=== PATIENT | female | born 1940 | race Caucasian/White ===

== ENCOUNTER 2024-06-08 09:02 | Outpatient (CLI) | payer MEDICARE, BC | END 2024-06-08 23:59 | disposition critical access hospital (66) | LOC: EMS 09:02 | DX: R10.84 Generalized abdominal pain (principal); R11.2 Nausea with vomiting, unspecified; R19.7 Diarrhea, unspecified; R53.1 Weakness | CPT/HCPCS: A0425; A0429 ==

== ENCOUNTER 2024-06-08 09:24 | Emergency (ER) | payer MEDICARE, BC ==
--- NOTE | 2024-06-08 09:52 | ED Physician Documentation ---
PD HPI NVD - Stated complaint Stated Complaint: GENERAL WEAKNESS/ABD PX - Chief complaint Chief Complaint: Abd Pain - History obtained from History obtained from: Patient - History of Present Illness Timing - onset: How many weeks ago (2) Timing - duration: Weeks (2) Timing - details: Gradual onset, Still present, Waxing and waning PD PAST MEDICAL HISTORY - Past Medical History Cardiovascular: None Respiratory: None Neuro: None Endocrine/Autoimmune: None - Present Medications Home Medications: Ambulatory Orders Medication Instructions Recorded Confirmed Alprazolam [Alprazolam Xr] 0.5 mg PO BID PRN 06/08/24 06/08/24 Atorvastatin [Lipitor] 20 mg PO QPM 06/08/24 06/08/24 Calcium Carb (Oyster Shell) 1,000 mg PO DAILY 06/08/24 06/08/24 [Oysco-500] Denosumab [Prolia] 60 mg SUBQ ONCE 06/08/24 06/08/24 Famotidine [Acid Junior Software Engineer] 20 mg PO BID 06/08/24 06/08/24 Fluticasone [Flonase] 1 sprays CHERI DAILY 06/08/24 06/08/24 Loteprednol Etabonate 5 ml OP TID 06/08/24 06/08/24 Melatonin 10 mg PO QPM 06/08/24 06/08/24 Multivit-Min/Folic Acid/Biotin 1 each PO DAILY 06/08/24 06/08/24 [Women Multivit W-Biotin Gummy] Omeprazole 20 mg PO BID #30 tab 06/08/24 Ondansetron Odt [Zofran] 4 mg TL Q6H PRN #20 tablet 06/08/24 Ondansetron [Ondansetron Odt] 8 mg PO Q12H PRN 06/08/24 06/08/24 Promethazine Supp [Phenergan Supp] 25 mg CO Q6H PRN #5 supp 06/08/24 Promethazine [Phenergan] 25 mg PO Q6H PRN #10 tab 06/08/24 Sucralfate [Carafate] 1 gm PO ACHS 5 Days #200 ml 06/08/24 - Allergies Allergies/Adverse Reactions: Allergies Allergy/AdvReac Type Severity Reaction Status Date / Time No Known Drug Allergies Allergy Verified 06/08/24 09:39 PD ED PE NORMAL - Vitals Vital signs reviewed: Yes - General General: Alert and oriented X 3, No acute distress, Well developed/nourished - HEENT HEENT: Pharynx benign - Neck Neck: Supple, no meningeal sign, No adenopathy - Cardiac Cardiac: RRR, No murmur - Respiratory Respiratory: Clear bilaterally - Abdomen Abdomen: Normal bowel sounds, Soft, Non distended, No organomegaly, Other (mild tender epigastric withut guarding. Not tender lower abd. ) - Derm Derm: Normal color, Warm and dry - Neuro Neuro: Alert and oriented X 3, No motor deficit, Normal speech Results - Vitals Vitals: Oxygen O2 Source Room air - Labs Labs: Laboratory Tests 06/08/24 06/08/24 06/08/24 10:04 10:11 10:42 WBC 7.4 RBC 3.85 L Hgb 12.8 Hct 38.2 MCV 99.2 H MCH 33.2 H MCHC 33.5 RDW 14.6 Plt Count 221 MPV 9.9 Neut # (Auto) 4.9 Lymph # (Auto) 1.3 L Ponce # (Auto) 0.8 Eos # (Auto) 0.2 Baso # (Auto) 0.0 Absolute Nucleated RBC 0.00 Nucleated RBC % 0.0 Sodium Potassium Chloride Carbon Dioxide Anion Gap BUN Creatinine Estimated GFR (MDRD) Glucose Calcium Phosphorus Magnesium Total Bilirubin AST ALT Alkaline Phosphatase Total Protein Albumin Globulin Albumin/Globulin Ratio Lipase Urine Color Urine Clarity Urine pH Ur Specific [place] Urine Protein Urine Glucose (UA) Urine Ketones Urine Occult Blood Urine Nitrite Urine Bilirubin Urine Urobilinogen Ur Leukocyte Esterase Ur Microscopic Review Urine Culture Comments Nasal Adenovirus (PCR) NOT DETECTED Nasal B. parapertussis DNA (PCR) NOT DETECTED Nasal Coronavir 229E PCR NOT DETECTED Nasal Coronavir HKU1 PCR NOT DETECTED Nasal Coronavir NL63 PCR NOT DETECTED Nasal Coronavir OC43 PCR NOT DETECTED Nasal Enterovir/Rhinovir PCR NOT DETECTED Nasal Influenza B PCR NOT DETECTED Nasal Influenza A PCR NOT DETECTED Nasal Parainfluen 1 PCR NOT DETECTED Nasal Parainfluen 2 PCR NOT DETECTED Nasal Parainfluen 3 PCR NOT DETECTED Nasal Parainfluen 4 PCR NOT DETECTED Nasal RSV (PCR) NOT DETECTED Nasal B.pertussis DNA PCR NOT DETECTED Nasal C.pneumoniae (PCR) NOT DETECTED Cheri Human Metapneumo PCR NOT DETECTED Nasal M.pneumoniae (PCR) NOT DETECTED Nasal SARS-CoV-2 (PCR) NOT DETECTED Stl C. diff Tox B Gene NEGATIVE 06/08/24 06/08/24 10:42 13:23 WBC RBC Hgb Hct MCV MCH MCHC RDW Plt Count MPV Neut # (Auto) Lymph # (Auto) Ponce # (Auto) Eos # (Auto) Baso # (Auto) Absolute Nucleated RBC Nucleated RBC % Sodium 133 L Potassium 4.0 Chloride 99 L Carbon Dioxide 27 Anion Gap 7.0 BUN 11 Creatinine 0.7 Estimated GFR (MDRD) 80 L Glucose 100 Calcium 9.9 Phosphorus 2.2 L Magnesium 2.0 Total Bilirubin 0.6 AST 19 ALT 17 Alkaline Phosphatase 70 Total Protein 7.0 Albumin 4.7 Globulin 2.3 Albumin/Globulin Ratio 2.0 Lipase 12 Urine Color YELLOW Urine Clarity CLEAR Urine pH 8.0 H Ur Specific [place] 1.010 Urine Protein NEGATIVE Urine Glucose (UA) NEGATIVE Urine Ketones NEGATIVE Urine Occult Blood NEGATIVE Urine Nitrite NEGATIVE Urine Bilirubin NEGATIVE Urine Urobilinogen 0.2 (NORMAL) Ur Leukocyte Esterase NEGATIVE Ur Microscopic Review NOT INDICATED Urine Culture Comments NOT INDICATED Nasal Adenovirus (PCR) Nasal B. parapertussis DNA (PCR) Nasal Coronavir 229E PCR Nasal Coronavir HKU1 PCR Nasal Coronavir NL63 PCR Nasal Coronavir OC43 PCR Nasal Enterovir/Rhinovir PCR Nasal Influenza B PCR Nasal Influenza A PCR Nasal Parainfluen 1 PCR Nasal Parainfluen 2 PCR Nasal Parainfluen 3 PCR Nasal Parainfluen 4 PCR Nasal RSV (PCR) Nasal B.pertussis DNA PCR Nasal C.pneumoniae (PCR) Cheri Human Metapneumo PCR Nasal M.pneumoniae (PCR) Nasal SARS-CoV-2 (PCR) Stl C. diff Tox B Gene - Rads (name of study) abd/pelvic CT Relevant Findings:: Prelim report reviewed (normal CT abd withut acute findings. ), EMP independent interpretation of test PD Medical Decision Making - ED course Complexity details: reviewed results (viral panel negative, C diff negative. CT abd without acute abnormality. WBC normal. Chemistry showing normal kidney function and lytes. Lfts and lipase also good. ), re-evaluated patient (feeling improved with IV fluids and meds for pain and nausea. ), considered differential (initially sounding like viral GE with NVD. Has had ongoing upper abd pain with nausea, and now recently with dairrhea again too. ), d/w patient Departure - Departure Disposition: 01 Home, Self Care Clinical Impression: Abdominal pain, Nausea vomiting and diarrhea Condition: Stable Record reviewed to determine appropriate education?: Yes Prescriptions: Sucralfate [Carafate] 1 gm PO ACHS 5 Days #200 ml Omeprazole 20 mg PO BID #30 tab Promethazine [Phenergan] 25 mg PO Q6H PRN #10 tab PRN Reason: Nausea / Vomiting Promethazine Supp [Phenergan Supp] 25 mg CO Q6H PRN #5 supp PRN Reason: Nausea / Vomiting Ondansetron Odt [Zofran] 4 mg TL Q6H PRN #20 tablet PRN Reason: Nausea / Vomiting Comments: It sounds likely you had some element of a viral "stomach flu" initially and perhaps just left a ongoing irritation of the stomach and intestines perpetuating your symptoms now for the couple of weeks. Your blood test did not show any signs of notable abnormality, in particular normal liver and pancreas enzymes, electrolytes, blood sugar and kidney function and blood count. Your CT scan did not show any acute abnormality to account for the abdominal pain. They did see the evidence for your history of multiple myeloma and bony areas. We can treat for the irritation of the stomach and intestines with increasing your stomach acid medication regimen, omeprazole increased from once daily to twice daily and add a liquid medicine called sacral fate 4 times daily. For nausea, if try ondansetron/Zofran and if not effective enough, add promethazine either tablet or suppository. If you have further diarrhea, try [id number] Imodium every 4-6 hours if needed. Small frequent fluids and bland food initially. I sent your prescriptions to [facility] pharmacy in [place]. Summary directions: 1. Increase omeprazole to twice daily 2. Sacral fate 4 times daily for the next 5 days 3. Ondansetron if needed for nausea 4. Promethazine if needed for nausea despite the above 5. Imodium if needed for diarrhea 6. Frequent fluids and bland food Forms: PCP List Discharge Date/Time: 06/08/24 16:31
[2024-06-08 10:49] LABS: BASOPHILS % (AUTO) 0.5 %; EOSINOPHILS # (AUTO) 0.2 10^3/uL (0.0-0.7); EOSINOPHILS % (AUTO) 3.3 %; HCT - HEMATOCRIT 38.2 % (37.0-47.0); HGB - HEMOGLOBIN 12.8 g/dL (12.0-16.0); LYMPHOCYTES # (AUTO) 1.3 10^3/uL (1.5-3.5); LYMPHOCYTES % (AUTO) 17.4 %; MEAN CORPUSCULAR HEMOGLOBIN 33.2 pg (27.0-31.0); MEAN CORPUSCULAR HGB CONC 33.5 g/dL (32.0-36.0); MEAN CORPUSCULAR VOLUME 99.2 fL (81.0-99.0); MEAN PLATELET VOLUME 9.9 fL (7.9-10.8); MONOCYTES # (AUTO) 0.8 10^3/uL (0.0-1.0); MONOCYTES % (AUTO) 10.6 %; NEUTROPHILS # (AUTO) 4.9 10^3/uL (1.5-6.6); NEUTROPHILS % (AUTO) 66.6 %; PLT - PLATELET COUNT 221 10^3/uL (130-450); RED BLOOD COUNT 3.85 10^6/uL (4.20-5.40); RED CELL DISTRIBUTION WIDTH 14.6 % (12.0-15.0); WHITE BLOOD COUNT 7.4 x10^3/uL (4.8-10.8)
[2024-06-08] MEDS: HYDROmorphone 0.5 MG/0.5 ML SYRINGE IVP STA (10:50)
[2024-06-08] MEDS: SODIUM CHLORIDE 0.9% 1,000 ML IV STA ×2 (10:50→14:04)
[2024-06-08] MEDS: ONDANSETRON 4 MG/2 ML VIAL IVP STA (10:51)
[2024-06-08] MEDS: FAMOTIDINE 20 MG/2 ML VIAL IVP STA (10:51)
[2024-06-08 11:02] LABS: ALBUMIN 4.7 g/dL (3.2-5.5); BILIRUBIN,TOTAL 0.6 mg/dL (0.2-1.0); CALCIUM 9.9 mg/dL (8.5-10.3); CREATININE 0.7 mg/dL (0.6-1.3); PHOSPHORUS 2.2 mg/dL (2.5-5.0)
--- NOTE | 2024-06-08 11:04 | XRAY Report ---
PROCEDURE: Chest 1V INDICATIONS: cough/dyspnea TECHNIQUE: One view of the chest was acquired. COMPARISON: None. FINDINGS: Surgical changes and devices: None. Lungs and pleura: No pleural effusions or pneumothorax. Lungs are clear. Mediastinum: Mediastinal contours appear normal. Heart size is normal. Bones and chest wall: No suspicious bony lesions. Multiple old bilateral rib fractures. Overlying so ft tissues appear unremarkable. IMPRESSION: No acute cardiopulmonary process. Reviewed by: Ramakrishna Bailey MD on 06/08/2024 11:03 AM PDT Approved by: Ramakrishna Bailey MD on 06/08/2024 11:03 AM PDT Station ID: [id number]
[2024-06-08 11:28] LABS: CORONAVIRUS 229E-RESP PCR NOT DETECTED; CORONAVIRUS HKU1-RESP PCR NOT DETECTED; CORONAVIRUS NL63-RESP PCR NOT DETECTED
[2024-06-08 11:29] LABS: B. PARAPERTUSSIS- RESP PCR PAN NOT DETECTED; B. PERTUSSIS- RESP PCR PANEL NOT DETECTED; C. PNEUMONIAE- RESP PCR PANEL NOT DETECTED; CORONAVIRUS OC43-RESP PCR NOT DETECTED; HUMAN METAPNEUMOVIRUS NOT DETECTED; INFLUENZA A- RESP PCR PANEL NOT DETECTED; INFLUENZA B - RESP PCR PANEL NOT DETECTED; M. PNEUMONIAE- RESP PCR PANEL NOT DETECTED; PARAINFLUENZA VIRUS 1 NOT DETECTED; PARAINFLUENZA VIRUS 2 NOT DETECTED; PARAINFLUENZA VIRUS 3 NOT DETECTED; PARAINFLUENZA VIRUS 4 NOT DETECTED; RHINOVIRUS/ENTEROVIRUS NOT DETECTED; RSV- RESP PCR PANEL NOT DETECTED; SARS-CoV-2 -RESP PCR PANEL NOT DETECTED
[2024-06-08] MEDS ORDERED: iohexoL-300 100 ML VIAL ONE (12:06)
[2024-06-08 13:34] LABS: BILIRUBIN,URINE NEGATIVE (NEGATIVE); GLUCOSE, URINE (UA) NEGATIVE (NEGATIVE); KETONES,URINE (UA) NEGATIVE (NEGATIVE); LEUKOCYTE ESTERASE, URINE NEGATIVE (NEGATIVE); NITRITE,URINE NEGATIVE (NEGATIVE); OCCULT BLOOD,URINE NEGATIVE (NEGATIVE); PROTEIN,URINE NEGATIVE (NEGATIVE); UROBILINOGEN,URINE 0.2 (NORMAL) E.U./dL (NORMAL)
[2024-06-08 13:35] LABS: CLARITY,URINE CLEAR (CLEAR)
[2024-06-08] MEDS: iohexoL-300 100 ML VIAL IVP ONE (13:43)
--- NOTE | 2024-06-08 13:51 | CT Report ---
PROCEDURE: Abdomen/Pelvis W INDICATIONS: N/V 2 weeks, worse. Lower abd pain CONTRAST: Omni 300 100ml TECHNIQUE: After the administration of intravenous contrast, a CT scan of the abdomen and pelvis was performed. Images were recorded and evaluated at appropriate window settings. Reformats: coronal and sagittal. F or radiation dose reduction, the following was used: automated exposure control, adjustment of mA and /or kV according to patient size. COMPARISON: None. FINDINGS: Image quality: Diagnostic. Lower chest: Unremarkable. Liver: No solid mass. Gallbladder: Biliary tree: No intrahepatic or extrahepatic dilation, accounting for age. Spleen: No splenomegaly. Pancreas: No pancreatic ductal dilation. Adrenals: No adrenal nodule. Kidneys and ureters: No hydronephrosis. No renal cystic lesion which requires follow up. No solid mas s. Stomach, bowel and peritoneum: Question possible antral gastritis.. No abnormal wall thickening. No p athologic free fluid. Lymph nodes: No central or retroperitoneal adenopathy. Vessels: No infrarenal aortic aneurysm. Patent portal vein. PELVIS Reproductive organs: Unremarkable. Bladder: No abnormal wall thickening, accounting for underdistention. Pelvic lymph nodes: No pelvic adenopathy by size criteria. Bones: There has been remote percutaneous cement fixation/kyphoplasty of T10, L1, and L5. There have also been bilateral sacroplasties. There is an unchanged in probably chronic L4 compression. There is extensive ill-defined bubbly lucency present in multiple bones raising the question of multiple myel steffany. This includes prominent low-density areas in the medial bilateral iliac bones. There is a pathol ogic fracture of the left symphysis pubis. Note is made of likely soft tissue extending posterior to the posterior border of the L5 vertebral body into the spinal canal resulting in severe canal stenosi s at that level. This is best seen on sagittal image 9 of series 6.. Other: No significant ventral or inguinal hernia. IMPRESSION: 1. Question possible antral gastritis. 2. No other potentially acute findings noted in the abdomen and pelvis. No findings explaining lower abdominal pain which would be unrelated to bony findings. 3. There is an extensive process involving numerous bony structures which has an appearance that is c onsistent with multiple myeloma. 4. Additionally, there appears to be a soft tissue density extending behind the L5 vertebral body wh ich results in severe canal stenosis which may represent soft tissue manifestations of malignancy sev erely encroaching on the canal. Recommend lumbar spine MRI with and without contrast Reviewed by: Ramakrishna Bailey MD on 06/08/2024 1:50 PM PDT Approved by: Ramakrishna Bailey MD on 06/08/2024 1:50 PM PDT Station ID: [id number]
[2024-06-08] MEDS: DROPERIDOL 5 MG/2 ML VIAL IVP STA (14:45)
[2024-06-08] MEDS: MAG HYDROX/AL HYDROX/SIMETH 30 ML UDC PO STA (14:47)
[2024-06-08 16:29] VITALS: BP 125/66; O2SAT 99
== END 2024-06-08 16:31 | disposition home or self-care (01) ==
LOC: ED 09:24
DX: R10.9 Unspecified abdominal pain (principal); R11.2 Nausea with vomiting, unspecified; R19.7 Diarrhea, unspecified; Z85.79 Personal history of other malignant neoplasms of lymphoid, hematopoietic and related tissues
CPT/HCPCS: 36415; 71045; 74177; 80053; 81003; 83690; 83735; 84100; 85025; 87493; 87633; 96374; 96375; 99284; A9270; J1170; Q9967; 81001; 87086